=== PATIENT | female | born 1985 | race Caucasian/White ===

== ENCOUNTER 2021-06-04 09:00 | Outpatient (CLI) | payer OTHER | END 2021-06-04 09:15 | disposition home or self-care (01) | LOC: PPH VACUNA 09:00 | PROVIDERS: ATTEND Emergency Medicine Pediatric Emergency Medicine | DX: Z23 Encounter for immunization (principal) ==

== ENCOUNTER 2021-06-12 08:00 | Outpatient (CLI) | payer OTHER | END 2021-06-12 11:20 | disposition home or self-care (01) | LOC: PPH VACUNA 08:00 | PROVIDERS: ATTEND Emergency Medicine Pediatric Emergency Medicine | DX: Z23 Encounter for immunization (principal) ==

== ENCOUNTER 2022-02-08 11:08 | Outpatient (CLI) | payer OTHER | END 2022-02-08 13:22 | disposition home or self-care (01) | LOC: RAD 11:08 | PROVIDERS: ATTEND Pathology Anatomic Pathology & Clinical Pathology | DX: M25.512 Pain in left shoulder (principal) ==

== ENCOUNTER 2022-03-27 13:11 | Outpatient (CLI) | payer OTHER | END 2022-03-27 13:16 | disposition home or self-care (01) | LOC: PPH VACUNA 13:11 | PROVIDERS: ATTEND Emergency Medicine Pediatric Emergency Medicine | DX: Z23 Encounter for immunization (principal) ==

== ENCOUNTER 2022-06-11 14:16 | Outpatient (CLI) | payer OTHER | END 2022-06-11 14:26 | disposition home or self-care (01) | LOC: PPH VACUNA 14:16 | PROVIDERS: ATTEND Emergency Medicine Pediatric Emergency Medicine | DX: Z23 Encounter for immunization (principal) ==